=== PATIENT | female | born 1935 | race Two or more races ===

== ENCOUNTER 2016-09-21 04:30 | Emergency (ER) | payer MEDICARE ==
[~2016-09-21] VITALS: Ht 157.5 cm; Wt 45.5 kg
[2016-09-21 04:42] LABS: GLUCOSE,POINT OF CARE 194 MG/DL (70-110)
[2016-09-21] MEDS ORDERED: ATROPINE SULFATE 0.1 MG/ML 10 ML SYRINGE IVP ONE ×2 (05:00→05:15)
[2016-09-21] MEDS ORDERED: CALCIUM GLUCONATE 100 MG/ML 10 ML IVP ONE ×2 (05:05→05:15)
[2016-09-21] MEDS ORDERED: ONDANSETRON HCL 4 MG/2 ML VIAL IVP ONE (05:15)
[2016-09-21] MEDS ORDERED: MEDR4 PO (05:17)
[2016-09-21] MEDS ORDERED: METO5TAB95 PO (05:17)
[2016-09-21] MEDS ORDERED: AMLO-512 PO (05:17)
[2016-09-21] MEDS ORDERED: PANT40TA25 PO (05:17)
[2016-09-21] MEDS ORDERED: FURO80 PO (05:17)
[2016-09-21] MEDS ORDERED: METHI10 PO (05:17)
[2016-09-21 05:27] LABS: BASOPHILS # (AUTO) 0.01 K/uL (0.00-0.20); BASOPHILS % (AUTO) 0.2 % (0.0-2.0); EOSINOPHILS # (AUTO) 0.03 K/uL (0.00-0.70); HEMATOCRIT 23.5 % (36-46); HEMOGLOBIN 7.8 g/dL (12.0-16.0); LYMPHOCYTES # (AUTO) 1.2 K/uL (1.0-4.8); LYMPHOCYTES % (AUTO) 11.8 % (22.0-44.0); MEAN CORPUSCULAR HEMOGLOBIN 31.3 pg (26.0-34.0); MEAN CORPUSCULAR HGB CONC 33.2 G/dL (31.0-37.0); MEAN CORPUSCULAR VOLUME 94 fL (80-100); MONOCYTES # (AUTO) 0.4 K/uL (0.1-1.0); MONOCYTES % (AUTO) 4.1 % (2.0-9.0); NEUTROPHILS # (AUTO) 8.3 K/uL (1.8-7.7); NEUTROPHILS % (AUTO) 83.7 % (40.0-70.0); PLATELET COUNT (AUTO) 382 K/uL (150-450); RED BLOOD CELL COUNT(AUTO) 2.49 MIL/uL (4.00-5.20); RED CELL DISTRIBUTION WIDTH 14.9 % (11.5-14.5); WHITE BLOOD COUNT (AUTO) 9.9 K/uL (4.5-11.0)
[2016-09-21] MEDS ORDERED: ALBUTEROL SULFATE 5 MG/ML 20 ML NEB SOLN [BULK] NEB ONE (05:30)
[2016-09-21] MEDS ORDERED: CALCIUM CHLORIDE 100 MG/ML 10 ML SYRINGE IVP ONE (05:30)
[2016-09-21] MEDS ORDERED: 0.9% SODIUM CHLORIDE 5 ML NEB SOLUTION NEB ONE (05:33)
[2016-09-21 05:42] LABS: ALBUMIN 2.7 g/dL (3.4-5.0); BILIRUBIN,TOTAL 0.4 mg/dL (0.1-1.0); CALCIUM, TOTAL 7.6 mg/dL (8.8-10.5); CREATININE 13.87 mg/dL (0.60-1.30); TOTAL PROTEIN, SERUM 6.5 g/dL (6.4-8.2)
[2016-09-21 05:46] LABS: POTASSIUM 7.5 mmol/L (3.5-5.1)
[2016-09-21 05:58] LABS: RBC MORPHOLOGY COMMENT DIMORPHIC RBC
[2016-09-21] MEDS ORDERED: DEXTROSE 50%-WATER 25 GM/50 ML SYRINGE IVP ONE (06:00)
[2016-09-21] MEDS ORDERED: SODIUM POLYSTYRENE SULFONATE 15 GM/60 ML SUSPENSION BOTTLE PO ONE (06:00)
[2016-09-21] MEDS ORDERED: INSULIN REGULAR, HUMAN 100 UNITS/ML IVP ONE (06:00)
[2016-09-21] MEDS ORDERED: SODIUM BICARBONATE [ADULT] 8.4% 50 MEQ/50 ML SYRINGE IVP ONE (06:00)
[2016-09-21 08:21] VITALS: BP 131/66
== END 2016-09-21 10:00 | disposition home or self-care (01) ==
LOC: EMS 04:31
DX: R00.1 Bradycardia, unspecified (principal); E87.5 Hyperkalemia; E11.22 Type 2 diabetes mellitus with diabetic chronic kidney disease; N18.9 Chronic kidney disease, unspecified; I48.91 Unspecified atrial fibrillation; E78.00 Pure hypercholesterolemia, unspecified; Z91.013 Allergy to seafood; Z88.8 Allergy status to other drugs, medicaments and biological substances
CPT/HCPCS: 36415; 71010; 80053; 82962; 84484; 85025; 93005; 94640; 96374; 96375; 99291; J0461; J0610; J1815; J2405; J3490 ×2